=== PATIENT | male | born 1980 | race Native Hawaiian/Other Pacific Islander ===

== ENCOUNTER 2020-08-24 13:52 | Emergency (ER) | payer SELFPAY ==
[~2020-08-24] VITALS: Ht 170.2 cm; Wt 77.3 kg
[2020-08-24 14:00] VITALS: BP 137/79
== END 2020-08-24 15:21 | disposition home or self-care (01) ==
LOC: EMS 13:52
DX: U07.1 COVID-19 (principal)
CPT/HCPCS: 99283; U0003